=== PATIENT | male | born 1975 | race Caucasian/White ===

== ENCOUNTER 2019-06-15 10:53 | Day surgery (SDC) | payer OTHER ==
[2019-06-15] MEDS ORDERED: Ropivacaine 0.5% HCl/PF (150 MG/30 ML VIAL) ONE (11:12)
[2019-06-15] MEDS ORDERED: Ketorolac Tromethamine 30 MG/ML VIAL ONE (11:12)
[2019-06-15] MEDS ORDERED: Fentanyl 100 MCG/2 ML VIAL ONE ×2 (12:11→12:18)
[2019-06-15] MEDS ORDERED: Midazolam HCl 2 mg/2 ml Vial ONE ×2 (12:18→12:43)
[2019-06-15] MEDS ORDERED: Bupivacaine PF 0.5% 30 ML VIAL ONE (12:27)
[2019-06-15] MEDS ORDERED: Bacitracin Zinc Ointment 30 gm TUBE ONE (12:28)
[2019-06-15] MEDS ORDERED: Sodium Chloride 0.9% 10 ML ONE (12:28)
[2019-06-15 12:50] LABS: #Eosinphils 0.3 thou/uL (0.0-0.7); #Lymphocytes 1.7 thou/uL (1.20-3.40); #Monocytes 0.5 thou/uL (0.11-0.59); #Neutrophils 4.4 thou/uL (1.40-6.50); %Basophils 0.4 % (0.0-1.0); %Lymphocytes 24.8 % (21.0-51.0); %Monocytes 7.6 % (0.0-10.0); %Neutrophils 63.2 % (42.0-75.0); Hemoglobin 14.7 g/dL (14.0-18.0); Mean Corpuscular HGB CONC 34.8 g/dL (32.0-36.0); Mean Corpuscular Hemoglobin 31.2 pg (27.0-31.0); Mean Corpuscular Volume 89.5 fL (78.0-98.0); Platelet Count 167 thou/uL (130-400); RBC Distribution Width 12.4 % (11.5-14.5); Red Blood Cell (RBC) Count 4.73 mill/uL (4.70-6.10); White Blood Cell (WBC) Count 6.9 thou/uL (4.8-10.8)
--- NOTE | 2019-06-15 15:04 | RAD ---
LEFT THIRD DIGIT 2 VIEWS: HISTORY: ORIF of left third digit. TECHNIQUE: Two separate C-arm projections COMPARISON: None. FLUOROSCOPIC TIME: 46.3 seconds. TOTAL EXPOSURE: 1.09 mGy. FINDINGS: Submitted images demonstrate smooth Cheryl wire fixation of the comminuted distal phalangeal fract ure of the left third digit. IMPRESSION: Open reduction internal fixation of left third digit distal phalanx. POS: [facility]
--- NOTE | 2019-06-15 19:18 | OP ---
DATE OF PROCEDURE: 06/15/2019 PREOPERATIVE DIAGNOSES: 1. Open fracture with exposed bone. 2. Wound with complex nailbed involvement. FINDINGS: Very complex middle finger ulnar side injury with approximately 1 mm wide x 5 mm long area of missing sterile nailbed. COMPLICATIONS: None. No gross infection found. PROCEDURES PERFORMED: 1. Debridement of material associated with open fracture. 2. Debridement of wound down to including the bone. 3. Repair of 4 cm laceration. 4. Repair of nailbed, complex. 5. Open reduction internal fixation of distal phalanx fracture. 6. C-arm supervision. DESCRIPTION OF PROCEDURE: After successful general tracheal, the limb was prepped and draped. Patient then had the previous chromic sutures removed so that we could then explore his lacerations. He had a periungual laceration extended both the radial and ulnar side, but the central 3/4 of his trough was intact, although macerated had circulation. He had had a block in association with his procedure, so we only augmented him with 5 mL of 0.5% Marcaine dorsally. We elevated the nail carefully. Here, we saw the very stellate, markedly comminuted nailbed injury and with a one small piece of bone protruding at the junction of the skin and nail fold. We then used a curette, Ruby blade, Deeth, and irrigation to debride the wound. It was an excisional debridement and included the bone, center portion of the fracture and the comminuted pieces. We then preserved all nailbed as much as possible, especially the sterile matrix, there was a 1.5 mm separation sterile germinal matrix on the ulnar corner and once we had performed the 2 L irrigation, removed all hematoma, we then began the repair. A 5 mm incision had to be made in an oblique fashion junction over the germinal matrix to expose it, we then used 5-0 chromic to repair the germinal sterile matrix, 6-0 chromic to repair the multiple sterile matrix lacerations, and the skin fold was brought into to the ulnar side of the nailbed to help support this repair. We had repaired early before the nailbed with 5-0 nylon interrupted simple pattern the lacerations as they were debrided using the same techniques for the bone. We now turned our attention to the bone fragments, using the compression, we reduced the fractures, especially the palmar, displaced in the sagittal plane, passed 2 K-wires, one juxta-articular right with 0.5 mm in the subchondral surface. We then placed one wire from radial to ulnar while we held reduced the 1 cm long x 3 mm wide fragment on this end of the construct. Now, the construct was stable, we augmented the skin repair and then released the tourniquet. We then placed the remnant of the central portion of the old nail underneath the eponychial fold, bacitracin, Adaptic on top of this, 4x4s, a small Jennifer, and then a metal finger splint all way to the level including the PIP joint on the palmar aspect with a dorsal over tip 1 cm blocking piece to protect hypersensitivity. The wires were cut 1 mm below the skin, and the patient left the operating room with a pink digit up to the level of his preoperative circulation with no evidence of anesthetic or operative complication. Job ID: [id number]
== END 2019-06-15 15:45 | disposition home or self-care (01) ==
LOC: SDC 10:53
PROVIDERS: ATTEND Orthopaedic Surgery Hand Surgery
PROC: 0PSV04Z Reposition Left Finger Phalanx with Internal Fixation Device, Open Approach (ICD-10-PCS; principal; 2019-06-15)
PROC: 0HQQXZZ Repair Finger Nail, External Approach (ICD-10-PCS; principal; 2019-06-15)
DX: S62.633B Displaced fracture of distal phalanx of left middle finger, initial encounter for open fracture (principal); X58.XXXA Exposure to other specified factors, initial encounter
CPT/HCPCS: 76000; 85025; J0690; J2250; J3010; J3490; S0020